=== PATIENT | female | born 1975 | race Caucasian/White ===

== ENCOUNTER 2016-11-05 11:25 | Emergency (ER) | payer SELFPAY ==
[2016-11-05 11:35] VITALS: BP 150/77
--- NOTE | 2016-11-05 12:12 | ER Document Report ---
ED Medical Screen (RME) - General Stated Complaint: EAR PAIN Information source: Patient Notes: 41-year-old with complete cerumen impaction that I see in triage of her right ear canal. She tried to get it out at home and was unsuccessful. I have greeted and performed a rapid initial assessment of this patient. A comprehensive ED assessment, evaluation of the patient, analysis of test results , and completion of the medical decision making process will be contacted by additional ED providers. TRAVEL OUTSIDE OF THE [place] IN LAST 30 DAYS: No - Related Data Allergies/Adverse Reactions: erythromycin lactobionate [From Erythrocin] Allergy (Verified 11/05/16 12:10) Shellfish * [Shellfish] Allergy (Verified 11/05/16 12:10) Past Medical History Pulmonary Medical History: Reports: Hx Asthma Past Surgical History: Reports: Hx Oral Surgery, Hx Tubal Ligation - Immunizations Immunizations up to date: Yes Hx Diphtheria, Pertussis, Tetanus Vaccination: Yes Physical Exam - Vital signs Vitals: Temp Pulse Resp BP Pulse Ox 98.1 F 78 14 150/77 H 98 11/05/16 11:34 11/05/16 11:34 11/05/16 11:34 11/05/16 11:34 11/05/16 11:34 Course - Vital Signs Vital signs: Temp Pulse Resp BP Pulse Ox 98.1 F 78 14 150/77 H 98 11/05/16 11:34 11/05/16 11:34 11/05/16 11:34 11/05/16 11:34 11/05/16 11:34
[2016-11-05] MEDS ORDERED: DOCUSATE SODIUM 100 MG/10 ML UDC AU ONE (13:42)
--- NOTE | 2016-11-05 13:50 | ER Document Report ---
ED ENT - General Chief Complaint: Ear Pain Stated Complaint: EAR PAIN Time seen by provider: 13:43 Mode of Arrival: Ambulatory Information source: Patient Notes: 41-year-old female presents to ED for decreased hearing in her right ear, states she tried some stuff at home but could not get the wax out. States she usually uses a Q-tip to clean her ears but does not have any Q-tips at this time TRAVEL OUTSIDE OF THE [place] IN LAST 30 DAYS: No - HPI Patient complains to provider of: Ear problem Onset: Yesterday Onset/Duration: Gradual Quality of pain: Achy Severity: Mild Pain Level: 1 Location of pain: Ears Associated symptoms: Other - cerumen impaction Similar symptoms previously: Yes Recently seen / treated by doctor: No - Related Data Allergies/Adverse Reactions: erythromycin lactobionate [From Erythrocin] Allergy (Verified 11/05/16 12:10) Shellfish * [Shellfish] Allergy (Verified 11/05/16 12:10) Past Medical History - General Information source: Patient - Social History Smoking Status: Never Smoker Cigarette use (# per day): No Chew tobacco use (# tins/day): No Smoking Education Provided: No Frequency of alcohol use: None Drug Abuse: None Lives with: Family Family History: Reviewed & Not Pertinent Patient has suicidal ideation: No Patient has homicidal ideation: No - Past Medical History Cardiac Medical History: Reports: None Pulmonary Medical History: Reports: Hx Asthma EENT Medical History: Reports: None Neurological Medical History: Reports: None Endocrine Medical History: Reports: None Renal/ Medical History: Reports: None Malignancy Medical History: Reports: None GI Medical History: Reports: None Musculoskeltal Medical History: Reports None Skin Medical History: Reports None Psychiatric Medical History: Reports: None Traumatic Medical History: Reports: None Infectious Medical History: Reports: None Past Surgical History: Reports: Hx Oral Surgery, Hx Tubal Ligation - Immunizations Immunizations up to date: Yes Hx Diphtheria, Pertussis, Tetanus Vaccination: Yes Review of Systems - Review of Systems Constitutional: No symptoms reported EENT: Ear pain Cardiovascular: No symptoms reported Respiratory: No symptoms reported Gastrointestinal: No symptoms reported Genitourinary: No symptoms reported Female Genitourinary: No symptoms reported Musculoskeletal: No symptoms reported Skin: No symptoms reported Hematologic/Lymphatic: No symptoms reported Neurological/Psychological: No symptoms reported Physical Exam - Vital signs Vitals: Temp Pulse Resp BP Pulse Ox 98.1 F 78 14 150/77 H 98 11/05/16 11:34 11/05/16 11:34 11/05/16 11:34 11/05/16 11:34 11/05/16 11:34 Interpretation: Normal - General General appearance: Appears well, Alert - HEENT Head: Normocephalic, Atraumatic Eyes: Normal Pupils: PERRL Ears: Normal External canal: Cerumen impaction - Right ear, a lot of wax in the left Sinus: Normal Nasal: Normal Mouth/Lips: Normal Pharynx: Normal Neck: Normal - Respiratory Respiratory status: No respiratory distress Chest status: Nontender Breath sounds: Normal Chest palpation: Normal - Cardiovascular Rhythm: Regular Heart sounds: Normal auscultation Murmur: No - Abdominal Inspection: Normal Distension: No distension Bowel sounds: Normal Tenderness: Nontender Organomegaly: No organomegaly - Back Back: Normal, Nontender - Extremities General upper extremity: Normal inspection, Nontender, Normal color, Normal ROM , Normal temperature General lower extremity: Normal inspection, Nontender, Normal color, Normal ROM , Normal temperature, Normal weight bearing. No: Simi's sign - Neurological Neuro grossly intact: Yes Cognition: Normal Orientation: AAOx4 [place] Coma Scale Eye Opening: Spontaneous [place] Coma Scale Verbal: Oriented [place] Coma Scale Motor: Obeys Commands [place] Coma Scale Total: 15 Speech: Normal Motor strength normal: LUE, RUE, LLE, RLE Sensory: Normal - Psychological Associated symptoms: Normal affect, Normal mood - Skin Skin Temperature: Warm Skin Moisture: Dry Skin Color: Normal Course - Re-evaluation Re-evalutation: 11/05/16 20:27 Patient states she could not wait long enough to get her ears cleaned patient given instructions on how to clean her ear with liquid Colace warm water and peroxide. Patient states she had to go to a teacher meat and could not wait to get it done right now but would return if she was not able to clean them the way she was instructed. - Vital Signs Vital signs: Temp Pulse Resp BP Pulse Ox 98.1 F 78 14 150/77 H 98 11/05/16 11:34 11/05/16 11:34 11/05/16 11:34 11/05/16 11:34 11/05/16 11:34 Discharge - Discharge Clinical Impression: Cerumen impaction Qualifiers: Laterality: bilateral Qualified Code(s): H61.23 - Impacted cerumen, bilateral Condition: Stable Disposition: HOME, SELF-CARE Instructions: Family Physicians / Practices Additional Instructions: Cerumen Impaction The physician found a severe buildup of earwax in your ear canal, called a cerumen impaction. A large plug of wax can cause earache, decreased hearing, or itching. It can even lead to infection of the outer ear. An impaction of earwax can be removed by the physician using special instruments, or can be irrigated out using a stream of water (often a little of both is required). Some less severe impactions are removed using ear drops that dissolve wax. In the future, don't get soap in your ear canal. Soap doesn't remove wax - - it simply hardens it in place. Don't use cotton swabs. These just push the wax into large clumps, where it doesn't flow out normally. Dust and smoke also contribute to wax buildup. Earwax softening drops are available without prescription, and can be used periodically. Contact the doctor if you develop decreased hearing, earache, drainage from the ear, or severe headache. Please put liquid Colace in the ear canal until it is full period that it stay for 15 minutes then irrigated with half peroxide half water with the bulb syringe. Then flushed with warm water. Acetaminophen Acetaminophen may be taken for pain relief or fever control. It's much safer than aspirin, offering a wider range of "safe" dosages. It is safe during . Some brand names are Tylenol, Panadol, Datril, Anacin 3, Tempra, and Liquiprin. Acetaminophen can be repeated every four hours. The following are maximum recommended dosages: WEIGHT Dose Drops Elixir Chewable( 80mg) (LBS.) drprs=droppers tsp=teaspoon 6 40 mg .4 ml (1/2) 6-11 80 mg .8 ml (full) 1/2 tsp 1 tab 12-16 120 mg 1 1/2 drprs 3/4 tsp 1 1/2 tabs 17-23 160 mg 2 drprs 1 tsp 2 tabs 24-30 240 mg 3 drprs 1 1/2 tsp 3 tabs 30-35 320 mg 2 tsp 4 tabs 36-41 360 mg 2 1/4 tsp 4 1 /2 tabs 42-47 400 mg 2 1/2 tsp 5 tabs 48-53 480 mg 3 tsp 6 tabs 54-59 520 mg 3 1/4 tsp 6 1 /2 tabs 60-64 560 mg 3 1/2 tsp 7 tabs 65-70 600 mg 3 3/4 tsp 7 1 /2 tabs 71-76 640 mg 4 tsp 8 tabs 77-82 720 mg 4 1/2 tsp 9 tabs 83-88 800 mg 5 tsp 10 tabs >89 pounds or adults 650 mg to 900 mg Acetaminophen can be repeated every four hours. Maximum daily dose not to exceed 4000 mg. These maximum recommended dosages are slightly higher than the dosages written on the product container, but these dosages are very safe and well below the toxic dosage for acetaminophen. FOLLOW-UP CARE: If you have been referred to a physician for follow-up care, call the physician s office for an appointment as you were instructed or within the next two days. If you experience worsening or a significant change in your symptoms, notify the physician immediately or return to the Emergency Department at any time for re-evaluation. Forms: Elevated Blood Pressure, Smoking Cessation Education, Return to Work
== END 2016-11-05 13:51 | disposition home or self-care (01) ==
LOC: ER 11:25
DX: H61.23 Impacted cerumen, bilateral (principal); J45.909 Unspecified asthma, uncomplicated; Z88.1 Allergy status to other antibiotic agents; Z91.013 Allergy to seafood
CPT/HCPCS: 99282

== ENCOUNTER 2017-07-06 19:17 | Emergency (ER) | payer SELFPAY ==
--- NOTE | 2017-07-06 20:49 | ER Document Report ---
HPI - HPI Pain Level: 2 Notes: Patient is a 41-year-old female who presents the ED complaining of a dry nonproductive cough 3 weeks. Patient states that it started out as a URI which has since turned into a cough that has not ceased. She still eating and drinking without any difficulties. Patient states that she does have a history of asthma, but has not been having wheezing or trouble breathing. Patient has been using [id number] meds with minimal relief. Patient states that she does have an allergy to erythromycin, but states that she just had a GI upset and no anaphylaxis or rash. Denies any headache, fever, neck pain, URI, sore throat, chest pain, palpitations, syncope, shortness of breath, wheeze, dyspnea , abdominal pain, nausea/vomiting/diarrhea, urinary retention, dysuria, hematuria, or rash. NO h/o DVT, PE, CAD, GA. No calf pains, distance travel, smoking, or hormone use. - ROS Notes: REVIEW OF SYSTEMS: CONSTITUTIONAL : Denies fever, chills, or sweats. Denies recent illness. EENT: Denies eye, ear, throat, or mouth pain or symptoms. Denies nasal or sinus congestion or discharge. Denies throat, tongue, or mouth swelling or difficulty swallowing. CARDIOVASCULAR: Denies chest pain. Denies palpitations or racing or irregular heart beat. Denies ankle edema. RESPIRATORY: see hpi. Denies shortness of breath, difficulty breathing, or wheezing. GASTROINTESTINAL: Denies abdominal pain or distention. Denies nausea, vomiting , or diarrhea. Denies blood in vomitus, stools, or per rectum. Denies black, tarry stools. Denies constipation. GENITOURINARY: Denies difficulty urinating, painful urination, burning, frequency, blood in urine, or discharge. MUSCULOSKELETAL: Denies back or neck pain or stiffness. Denies joint pain or swelling. SKIN: Denies rash, lesions or sores. NEUROLOGICAL: Denies confusion or altered mental status. Denies passing out or loss of consciousness. Denies dizziness or lightheadedness. Denies headache. Denies weakness or paralysis or loss of use of either side. Denies problems with gait or speech. Denies sensory loss, numbness, or tingling. ALL OTHER SYSTEMS REVIEWED AND NEGATIVE. Dictation was performed using [employer] voice recognition software - REPRODUCTIVE Reproductive: DENIES: : - DERM Skin Color: Normal, [place] Past Medical History - Social History Smoking Status: Never Smoker Family History: Reviewed & Not Pertinent Patient has suicidal ideation: No Patient has homicidal ideation: No Pulmonary Medical History: Reports: Hx Asthma Renal/ Medical History: Denies: Hx Peritoneal Dialysis Past Surgical History: Reports: Hx Oral Surgery, Hx Tubal Ligation - Immunizations Immunizations up to date: Yes Hx Diphtheria, Pertussis, Tetanus Vaccination: Yes Vertical Provider Document - CONSTITUTIONAL Agree With Documented VS: Yes Notes: PHYSICAL EXAMINATION: GENERAL: Well-appearing, well-nourished and in no acute distress. A&Ox4 HEAD: Atraumatic, normocephalic. EYES: Pupils equal round and reactive to light, extraocular movements intact, sclera anicteric, conjunctiva are normal. ENT: EAC clear b/l. TM's intact b/l without erythema, fluid, or perforation. Nares patent and without discharge. oropharynx clear without exudates. No tonsilar hypertrophy or erythema. Moist mucous membranes. No sinus tenderness. NECK: Normal range of motion, supple without lymphadenopathy LUNGS: Breath sounds clear to auscultation bilaterally and equal. No wheezes rales or rhonchi. HEART: Regular rate and rhythm without murmurs, rubs, gallops. ABDOMEN: Soft, nontender, nondistended abdomen. No guarding, no rebound. No masses appreciated. Normal bowel sounds present. No CVA tenderness bilaterally. Musculoskeletal: FROM to passive/active. Strength 5+/5. Simi neg b/l. Extremities: No cyanosis, clubbing, or edema b/l. Peripheral pulses 2+. Capillary refill less than 3 seconds. NEUROLOGICAL: Cranial nerves grossly intact. Normal speech, normal gait. Normal sensory, motor exams PSYCH: Normal mood, normal affect. SKIN: Warm, Dry, normal turgor, no rashes or lesions noted. - INFECTION CONTROL TRAVEL OUTSIDE OF THE [place] IN LAST 30 DAYS: No - RESPIRATORY O2 Sat by Pulse Oximetry: 100 Course - Re-evaluation Re-evalutation: 07/06/17 20:46 Patient is an afebrile, well-hydrated, 41-year-old female who presents the ED with acute bronchitis. Vitals are stable. PE is otherwise unremarkable. Going to cover her with Zithromax, Tessalon, and an albuterol inhaler based on H &P today. No other imaging warranted at this time. Low suspicion/risk for any ACS, PE, pneumothorax, pericarditis, dissection, sepsis, or respiratory compromise. Patient is aware that her condition can change from initial presentation and she needs to monitor symptoms closely and seek medical attention with any acute changes. Conservative measures otherwise for symptoms. Recheck with your PCM in 2-3 days. Return to the ED with any worsening/concerning symptoms otherwise as reviewed discharge. Patient is in agreement. Patient does not have a true medicine allergy to macrolides she just had a GI upset without any rash or anaphylaxis to erythromycin. - Vital Signs Vital signs: Temp Pulse Resp BP Pulse Ox 98.5 F 79 18 147/71 H 100 07/06/17 19:28 07/06/17 19:28 07/06/17 19:28 07/06/17 19:28 07/06/17 19:28 Discharge - Discharge Clinical Impression: Acute bronchitis Qualifiers: Bronchitis organism: unspecified organism Qualified Code(s): J20.9 - Acute bronchitis, unspecified Condition: Stable Disposition: HOME, SELF-CARE Instructions: Bronchitis ([facility]), Inhaled Bronchodilators ([facility]), Tessalon Perles ([facility]), Azithromycin ([facility]), Family Physicians / Practices Additional Instructions: Maintain adequate fluid intake Take meds as directed tylenol/ibuprofen as needed over the counter cold medication as needed for symptoms Humidified air may help F/u: with your PCM in 2-3 days for a recheck Return to the ED with any fever, worsening pain, chest pain, palpitations, syncope, worsening PATIÑO, neck pain/stiffness, shortness of breath, wheezing, drooling, trouble swallowing/breathing, abdominal pain, n/v/d, rash, or worsening/concerning symptoms otherwise. Prescriptions: Benzonatate [Tessalon Perle 100 mg Capsule] 100 mg PO Q8HP PRN #15 cap PRN Reason: Albuterol Sulfate [Proair HFA Inhalation Aerosol 8.5 gm MDI] 2 puff IH Q4H PRN # 1 mdi PRN Reason: Azithromycin [Zithromax 250 mg Tablet] 250 mg PO ASDIR PRN #6 tablet PRN Reason: Forms: Elevated Blood Pressure Referrals: [facility] [Provider Group] - Follow up as needed
[2017-07-06 20:58] VITALS: BP 138/70
== END 2017-07-06 20:58 | disposition home or self-care (01) ==
LOC: ER 19:17
DX: J20.9 Acute bronchitis, unspecified (principal); J45.909 Unspecified asthma, uncomplicated; R05 Cough
CPT/HCPCS: 99283

== ENCOUNTER 2017-12-17 10:30 | Emergency (ER) | payer OTHER ==
[2017-12-17] MEDS ORDERED: ONDANSETRON 4 MG TAB.RAPDIS PO ONE (11:09)
[2017-12-17] MEDS ORDERED: ACETAMINOPHEN 325 MG TABLET PO ONE (11:09)
--- NOTE | 2017-12-17 11:10 | ER Document Report ---
ED Medical Screen (RME) - General Chief Complaint: Gas Exposure Stated Complaint: NAUSEA, CHEST TIGHTNESS Time Seen by Provider: 12/17/17 11:05 Notes: RME DISCLOSURE I have seen this patient as part of a Rapid Medical Evaluation and, if applicable, placed any initially appropriate orders. The patient will be seen and fully evaluated, including a full history and physical exam, by a provider ( in Main ED or Fast Track) when a room becomes available. 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 The fire department told her the "levels were high" and was told to come here. She does not have any shortness of breath. She is 1 of numerous employees with similar symptoms. TRAVEL OUTSIDE OF THE [place] IN LAST 30 DAYS: No - Related Data Allergies/Adverse Reactions: erythromycin lactobionate [From Erythrocin] Allergy (Verified 12/17/17 10:33) Shellfish * [Shellfish] Allergy (Verified 12/17/17 10:33) Past Medical History Pulmonary Medical History: Reports: Hx Asthma, Hx Bronchitis - frequent Renal/ Medical History: Denies: Hx Peritoneal Dialysis Past Surgical History: Reports: Hx Oral Surgery, Hx Tubal Ligation - Immunizations Immunizations up to date: Yes Hx Diphtheria, Pertussis, Tetanus Vaccination: Yes Physical Exam - Vital signs Vitals: Temp Pulse Resp BP Pulse Ox 98.2 F 56 L 20 132/61 H 100 12/17/17 10:36 12/17/17 10:36 12/17/17 10:36 12/17/17 10:36 12/17/17 10:36 Course - Vital Signs Vital signs: Temp Pulse Resp BP Pulse Ox 98.2 F 56 L 20 132/61 H 100 12/17/17 10:36 12/17/17 10:36 12/17/17 10:36 12/17/17 10:36 12/17/17 10:36
--- NOTE | 2017-12-17 11:42 | RADIOLOGY REPORT (SQ) ---
EXAM DESCRIPTION: CHEST PA/LAT COMPLETED DATE/TIME: 12/17/2017 11:19 am REASON FOR STUDY: CP cough COMPARISON: 09/02/2016 NUMBER OF VIEWS: Two view. TECHNIQUE: Frontal and lateral radiographic views of the chest acquired. LIMITATIONS: None. FINDINGS: LUNGS AND PLEURA: No opacities, masses or pneumothorax. No pleural effusion. MEDIASTINUM AND HILAR STRUCTURES: No masses or contour abnormalities. HEART AND VASCULATURE: Heart normal size. No evidence for failure. BONY STRUCTURES: No acute findings. HARDWARE: None. OTHER: No other significant finding. IMPRESSION: NO SIGNIFICANT RADIOGRAPHIC FINDING IN THE CHEST. TECHNICAL DOCUMENTATION: JOB ID: [id number] [employer]- All Rights Reserved Reading location - IP/workstation name: [email or web address]
[2017-12-17 12:17] LABS: ABSOLUTE BASOPHILS # (AUTO) 0.1 10^3/uL (0.0-0.2); ABSOLUTE EOSINOPHILS # (AUTO) 0.2 10^3/uL (0.0-0.6); ABSOLUTE LYMPHOCYTES (AUTO) 2.9 10^3/uL (0.5-4.7); ABSOLUTE MONOCYTES (AUTO) 0.8 10^3/uL (0.1-1.4); ABSOLUTE NEUT (AUTO) 6.2 10^3/uL (1.7-8.2); BASOPHILS % (AUTO) 1.1 % (0-2); EOSINOPHILS % (AUTO) 1.7 % (0-6); HEMATOCRIT 32.4 % (36.0-47.0); HEMOGLOBIN 10.3 g/dL (12.0-15.5); LYMPHOCYTES % (AUTO) 28.1 % (13-45); MEAN CORPUSCULAR HEMOGLOBIN 21.2 pg (27.0-33.4); MEAN CORPUSCULAR HGB CONC 31.7 g/dL (32.0-36.0); MEAN CORPUSCULAR VOLUME 67 fl (80-97); MONOCYTES % (AUTO) 7.6 % (3-13); RED BLOOD COUNT 4.83 10^6/uL (3.72-5.28); RED CELL DISTRIBUTION WIDTH 16.9 % (11.5-14.0); SEGMENTED NEUTROPHILS % (AUTO) 61.5 % (42-78); TOTAL CELLS COUNTED % (AUTO) 100 %; WHITE BLOOD COUNT 10.1 10^3/uL (4.0-10.5)
[2017-12-17 12:31] LABS: ALANINE AMINOTRANSFERASE 27 U/L (9-52); ALBUMIN 4.2 g/dL (3.5-5.0); ALKALINE PHOSPHATASE 58 U/L (38-126); ANION GAP 11 (5-19); ASPARTATE AMINO TRANSFERASE 17 U/L (14-36); BLOOD UREA NITROGEN 13 mg/dL (7-20); CALCIUM 9.5 mg/dL (8.4-10.2); CARBON DIOXIDE 24 mmol/L (22-30); CHLORIDE 106 mmol/L (98-107); GLUCOSE 81 mg/dL (75-110); POTASSIUM 4.3 mmol/L (3.6-5.0); SODIUM 141.1 mmol/L (137-145)
[2017-12-17 12:34] LABS: BILIRUBIN,TOTAL < 0.1 mg/dL (0.2-1.3)
[2017-12-17 12:37] LABS: PLATELET COUNT 405 10^3/uL (150-450)
--- NOTE | 2017-12-17 12:47 | ER Document Report ---
ED Burn/Smoke/Toxic Fumes - General Chief Complaint: Gas Exposure Stated Complaint: NAUSEA, CHEST TIGHTNESS Time Seen by Provider: 12/17/17 11:05 Mode of Arrival: Ambulatory Information source: Patient TRAVEL OUTSIDE OF THE [place] IN LAST 30 DAYS: No - HPI Patient complains to provider of: Exposure to toxic fumes Notes: Patient is here with complaints of CO2 exposure. She works at [employer] She states that she was in the building for approximately an hour. 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 As they were in the building longer prepping food they started to have eye burning lightheadedness and chest tightness as well as nausea and realized something was wrong. They left the building and called the fire department who found that there was a high level of CO2 in the building. Patient has a history of asthma. She is not a smoker. She states that right now she is feeling significantly better at this time. She denies any chest pain or shortness of breath currently. No vomiting. No fever. She has no other complaints. - Related Data Allergies/Adverse Reactions: erythromycin lactobionate [From Erythrocin] Allergy (Verified 12/17/17 10:33) Shellfish * [Shellfish] Allergy (Verified 12/17/17 10:33) Past Medical History - Social History Smoking Status: Never Smoker Chew tobacco use (# tins/day): No Frequency of alcohol use: None Drug Abuse: None Family History: Reviewed & Not Pertinent Patient has suicidal ideation: No Patient has homicidal ideation: No Pulmonary Medical History: Reports: Hx Asthma, Hx Bronchitis - frequent Renal/ Medical History: Denies: Hx Peritoneal Dialysis Past Surgical History: Reports: Hx Oral Surgery, Hx Tubal Ligation - Immunizations Immunizations up to date: Yes Hx Diphtheria, Pertussis, Tetanus Vaccination: Yes Review of Systems - Review of Systems -: Yes All other systems reviewed and negative Physical Exam - Vital signs Vitals: Temp Pulse Resp BP Pulse Ox 98.2 F 56 L 20 132/61 H 100 12/17/17 10:36 12/17/17 10:36 12/17/17 10:36 12/17/17 10:36 12/17/17 10:36 - Notes Notes: GENERAL: alert, cooperative, nontoxic, no distress. HEAD: normocephalic, atraumatic EYES: conjunctiva pink without discharge, no external redness or swelling. EARS: no external swelling, no external redness NOSE: atraumatic, no external swelling MOUTH/THROAT: mucous membranes moist and pink, posterior pharynx without erythema, swelling, exudate. No trismus or drooling. NECK: soft, supple, full range of motion, no meningismus. CHEST: no distress, lungs clear and equal throughout. No wheezing, rales, rhonchi. CARDIAC: regular rate and rhythm, no murmur, normal capillary refill, normal pulses. No peripheral edema noted. ABDOMEN: Soft, nontender. BACK: full range of motion, no CVA tenderness. EXTREMITIES: full range of motion of all extremities. No redness, no swelling. NEURO: alert and oriented x 3, no focal deficits, full range of motion of all extremities. PYSCH: appropriate mood, affect. Patient is cooperative. SKIN: pink, warm, dry, no rash. Course - Re-evaluation Re-evalutation: 12/17/17 14:11 Patient is here nontoxic appearing with stable vitals after being exposed to gas leak or CO2 at work. She was having some chest tightness and lightheadedness with eye burning when she arrived, but this is all resolved. EKG is unremarkable. Labs are all unremarkable. Carboxy hemoglobin is 1.1 and normal. Chest x-ray shows no acute abnormalities. She was placed on a nonrebreather and was observed for 90 minutes and is feeling completely resolved at this time. At this point the patient can be discharged home. She does have a history of asthma, so she was instructed if she starts having any asthma symptoms to be evaluated. At this time she has no wheezing. She does have an albuterol inhaler at home. The patient is noted to have elevated blood pressure during today's emergency department visit. The patient was informed of this finding. The patient was instructed that this may be related to pre-hypertension and requires further evaluation with a primary care provider. The patient has no hypertensive symptoms at this time. The patient's emergency department workup and current diagnosis were explained to the patient and or family. Follow-up instructions were provided. Medications if prescribed were discussed. Instructions for when to return to the emergency department including specific worrisome symptoms were discussed with the patient and/or family. - Vital Signs Vital signs: Temp Pulse Resp BP Pulse Ox 98.2 F 56 L 20 132/61 H 100 12/17/17 10:36 12/17/17 10:36 12/17/17 10:36 12/17/17 10:36 12/17/17 10:36 - Laboratory Result Diagrams: 12/17/17 11:55 12/17/17 11:55 Laboratory results interpreted by me: 12/17/17 12/17/17 11:55 11:55 Hgb 10.3 L Hct 32.4 L MCV 67 L MCH 21.2 L MCHC 31.7 L RDW 16.9 H Total Bilirubin < 0.1 L - Diagnostic Test Radiology reviewed: Image reviewed, Reports reviewed - Negative chest x-ray - EKG Interpretation by Me EKG shows normal: Sinus rhythm, [place], Intervals, QRS Complexes, ST-T Waves Rate: Normal Discharge - Discharge Clinical Impression: Exposure to gaseous substance Condition: Stable Disposition: HOME, SELF-CARE Instructions: Carbon Monoxide ([facility]) Additional Instructions: Follow-up with your doctor as needed. Follow-up sooner for worsening pain, chest pain, difficulty breathing, high fever, or for any further concerns. Your blood pressure was elevated during today's visit. Have this rechecked with your doctor. Forms: Elevated Blood Pressure Referrals: JUAN DIEGO ESTRELLA MD [Primary Care Provider] - Follow up as needed
--- NOTE | 2017-12-17 13:24 | EKG REPORT ---
SEVERITY:- NORMAL ECG - SINUS RHYTHM : Confirmed by: Favio Shelby MD 17-Dec-2017 13:22:38
[2017-12-17 14:26] VITALS: BP 131/56
== END 2017-12-17 14:32 | disposition home or self-care (01) ==
LOC: ER 10:30
DX: T59.7X1A Toxic effect of carbon dioxide, accidental (unintentional), initial encounter (principal); R42 Dizziness and giddiness; R07.9 Chest pain, unspecified; R11.0 Nausea; J45.909 Unspecified asthma, uncomplicated; Y92.511 Restaurant or cafe as the place of occurrence of the external cause; R03.0 Elevated blood-pressure reading, without diagnosis of hypertension
CPT/HCPCS: 93005; 99284; 36415; 82375; 85025; 80053; 71046; 93010; S0119

== ENCOUNTER → 2017-12-18 | Outpatient (CLI) | payer SELFPAY ==
--- NOTE | 2017-12-18 17:26 | WOMENS IMAGING REPORT ---
EXAM DESCRIPTION: BILAT SCREENING MAMMO W/CAD COMPLETED DATE/TIME: 12/18/2017 2:43 pm REASON FOR STUDY: ROUTINE SCREENING; Z12.31 Z12.31 ENCNTR SCREEN MAMMOGRAM FOR MALIGNANT NEOPLASM O F ROSA COMPARISON: None. TECHNIQUE: Standard craniocaudal and mediolateral oblique views of each breast recorded using BlockScorea l acquisition. LIMITATIONS: None. FINDINGS: Findings present which are benign by mammographic criteria. No suspicious masses, calcifi cations or architectural distortion. Pertinent benign findings: Left asymmetry. Read with the assistance of CAD. .[facility] - R2 Cenova Version 1.3 .[facility] - R2 Cenova Version 1.3 .[facility] - R2 Cenova Version 2.4 .[facility] - R2 Cenova Version 2.4 .[facility] - R2 Stripper And Taper Version 9.2 Benign mammographic findings may include one or more of the following: Smooth masses, popcorn/rim/co arse calcifications, asymmetries, post-procedure changes, and lesions with long-standing stability. IMPRESSION: BENIGN MAMMOGRAPHIC FINDINGS. BIRADS 2 BREAST DENSITY: b. There are scattered areas of fibroglandular density. BIRAD: 2 BENIGN FINDING(S) RECOMMENDATION: ROUTINE SCREENING COMMENT: The patient has been notified of the results by letter per SA requirements. Additional no tification policies are in place for contacting patient with suspicious or incomplete findings. Quality ID #[id number]: The [employer] recommends an annual screening mammogram for women aged 40 years or over. This facility utilizes a reminder system to ensure that all patients receive reminder letters, and/or direct phone calls for appointments. This includes reminders for routine scr eening mammograms, diagnostic mammograms, or other Breast Imaging Interventions when appropriate. Th is patient will be placed in the appropriate reminder system. The [employer] (ACR) has developed recommendations for screening MRI of the breast s in certain patient populations, to be used in conjunction with mammography. Breast MRI surveillanc e may be appropriate for women with more than 20% lifetime risk of developing breast cancer as deter mined by genetic testing, significant family history of the disease, or history of mantle radiation f or Hodgkins Disease. ACR Practice Guidelines 2008. TECHNICAL DOCUMENTATION: FINDING NUMBER: (1) ASSESSMENT: (1) JOB ID: [id number] [employer]- All Rights Reserved Reading location - IP/workstation name: [email or web address]
== END ==
LOC: WI 14:28
PROVIDERS: ATTEND Family Medicine
DX: Z12.31 Encounter for screening mammogram for malignant neoplasm of breast (principal)
CPT/HCPCS: 77067

== ENCOUNTER → 2018-02-12 | Outpatient (CLI) | payer BC ==
--- NOTE | 2018-02-12 17:13 | RADIOLOGY REPORT (SQ) ---
EXAM DESCRIPTION: U/S NON-OB PELVIS TV W/O DOP COMPLETED DATE/TIME: 02/12/2018 4:58 pm REASON FOR STUDY: N94.6 DYSMENORRHEA, UNSPECIFIED N94.6 DYSMENORRHEA, UNSPECIFIED COMPARISON: None. TECHNIQUE: Dynamic and static grayscale images acquired of the pelvis via transvaginal approach and recorded on PACS. Additional selected color Doppler and spectral images recorded. LIMITATIONS: None. FINDINGS: UTERUS: Contour normal. No mass. ENDOMETRIAL STRIPE: No focal or generalized thickening. No masses. CERVIX: Multiple nabothian cysts are present. The largest measured 1 cm. RIGHT OVARY AND DOPPLER: There is 13 x 12 x 14 mm cyst. LEFT OVARY AND DOPPLER: Poorly seen because of overlying bowel gas. Normal size. FREE FLUID: None noted. OTHER: No other significant finding. MEASUREMENTS: UTERUS: 10.7 x 6.4 cm. ENDOMETRIAL STRIPE: 1.3 cm. RIGHT OVARY: 3.3 x 2 x 2 cm. LEFT OVARY: 3.4 x 2.7 x 2.2 cm. IMPRESSION: The study is essentially normal. Nabothian cysts are present. A small right ovarian cy st is present. TECHNICAL DOCUMENTATION: JOB ID: [id number] [employer]- All Rights Reserved Rev Reading location - IP/workstation name: [email or web address]
== END ==
LOC: RAD 16:35
PROVIDERS: ATTEND Family Medicine
DX: N94.6 Dysmenorrhea, unspecified (principal)
CPT/HCPCS: 76830

== ENCOUNTER 2018-08-06 12:54 | Emergency (ER) | payer BC ==
[2018-08-06 13:00] VITALS: BP 138/73
[2018-08-06] MEDS ORDERED: NORMAL SALINE 1000 ML 1,000 ML IV ONE (13:14)
--- NOTE | 2018-08-06 13:23 | ER Document Report ---
ED Medical Screen (RME) - General Chief Complaint: Abdominal Pain Stated Complaint: ABDOMINAL PAIN Time Seen by Provider: 08/06/18 13:10 Notes: 43 years old female presents today with heavy menstrual bleeding starting yesterday but today the bleeding was heavier. Therefore present to the ED. Last menstrual cycle lasted 2 weeks ended around 30 31st of last month. Abdominal cramps but no pain. Denies any nausea vomiting fever chills or other constitutional symptoms. TRAVEL OUTSIDE OF THE [place] IN LAST 30 DAYS: No - Related Data Allergies/Adverse Reactions: erythromycin lactobionate [From Erythrocin] Allergy (Verified 08/06/18 12:55) Shellfish * [Shellfish] Allergy (Verified 08/06/18 12:55) Past Medical History - Social History Chew tobacco use (# tins/day): No Frequency of alcohol use: None Drug Abuse: None Pulmonary Medical History: Reports: Hx Asthma, Hx Bronchitis - frequent Renal/ Medical History: Denies: Hx Peritoneal Dialysis Past Surgical History: Reports: Hx Oral Surgery, Hx Tubal Ligation - Immunizations Immunizations up to date: Yes Hx Diphtheria, Pertussis, Tetanus Vaccination: Yes Physical Exam - Vital signs Vitals: Temp Pulse Resp BP Pulse Ox 98.4 F 81 16 138/73 H 99 08/06/18 12:59 08/06/18 12:59 08/06/18 12:59 08/06/18 12:59 08/06/18 12:59 Course - Vital Signs Vital signs: Temp Pulse Resp BP Pulse Ox 98.4 F 81 16 138/73 H 99 08/06/18 12:59 08/06/18 12:59 08/06/18 12:59 08/06/18 12:59 08/06/18 12:59 Doctor's Discharge - Discharge Referrals: JUAN DIEGO ESTRELLA MD [Primary Care Provider] - Follow up as needed
[2018-08-06 14:02] LABS: ABSOLUTE BASOPHILS # (AUTO) 0.1 10^3/uL (0.0-0.2); ABSOLUTE EOSINOPHILS # (AUTO) 0.2 10^3/uL (0.0-0.6); ABSOLUTE LYMPHOCYTES (AUTO) 2.3 10^3/uL (0.5-4.7); ABSOLUTE MONOCYTES (AUTO) 0.9 10^3/uL (0.1-1.4); ABSOLUTE NEUT (AUTO) 6.3 10^3/uL (1.7-8.2); BASOPHILS % (AUTO) 0.9 % (0-2); HEMATOCRIT 34.2 % (36.0-47.0); HEMOGLOBIN 11.2 g/dL (12.0-15.5); LYMPHOCYTES % (AUTO) 23.6 % (13-45); MEAN CORPUSCULAR HGB CONC 32.8 g/dL (32.0-36.0); MEAN CORPUSCULAR VOLUME 73 fl (80-97); MONOCYTES % (AUTO) 9.2 % (3-13); PLATELET COUNT 408 10^3/uL (150-450); RED BLOOD COUNT 4.67 10^6/uL (3.72-5.28); RED CELL DISTRIBUTION WIDTH 17.1 % (11.5-14.0); SEGMENTED NEUTROPHILS % (AUTO) 64.3 % (42-78); TOTAL CELLS COUNTED % (AUTO) 100 %; WHITE BLOOD COUNT 9.8 10^3/uL (4.0-10.5)
[2018-08-06 14:22] LABS: APPEARANCE,URINE TURBID; BILIRUBIN,URINE NEGATIVE (NEGATIVE); COLOR,URINE RED; GLUCOSE, URINE 50 mg/dL (NEGATIVE); KETONES,URINE NEGATIVE (NEGATIVE); LEUKOCYTE ESTERASE,URINE NEGATIVE (NEGATIVE); NITRITE,URINE NEGATIVE (NEGATIVE); PROTEIN,URINE >=500 mg/dL (NEGATIVE); URINE SPECIFIC GRAVITY 1.034; UROBILINOGEN,URINE NEGATIVE mg/dL (<2.0)
--- NOTE | 2018-08-06 15:00 | ER Document Report ---
ED General - General Chief Complaint: Abdominal Pain Stated Complaint: ABDOMINAL PAIN Time Seen by Provider: 08/06/18 13:10 Mode of Arrival: Ambulatory Information source: Patient Notes: 43-year-old female presents today with complaints of heavy menstrual bleeding. She states that her menstrual cycle started yesterday but today the bleeding was heavier. Patient states that her last menstrual cycle was 2 weeks ago. She states that she is having her typical menstrual cramping. She denies any abdominal pain. She denies any dysuria, increased urgency, increased frequency , abnormal vaginal discharge, nausea, vomiting. Patient states that she has been having heavy menstrual cycles for the last 6 months. She has followed up with her primary care physician in the past. Patient states that blood work was done and she was told that everything came back normal. Patient states that she has not been following up with an DEVELOPMENTAL MATHEMATICS PROFESSOR. TRAVEL OUTSIDE OF THE [place] IN LAST 30 DAYS: No - HPI Onset: Yesterday Onset/Duration: Persistent Quality of pain: No pain Severity: None Pain Level: Denies Associated symptoms: None Exacerbated by: Denies Relieved by: Denies Similar symptoms previously: Yes Recently seen / treated by doctor: No - Related Data Allergies/Adverse Reactions: erythromycin lactobionate [From Erythrocin] Allergy (Verified 08/06/18 12:55) Shellfish * [Shellfish] Allergy (Verified 08/06/18 12:55) Past Medical History - General Information source: Patient - Social History Smoking Status: Never Smoker Chew tobacco use (# tins/day): No Frequency of alcohol use: None Drug Abuse: None Family History: Reviewed & Not Pertinent Patient has suicidal ideation: No Patient has homicidal ideation: No Pulmonary Medical History: Reports: Hx Asthma, Hx Bronchitis - frequent Renal/ Medical History: Denies: Hx Peritoneal Dialysis Past Surgical History: Reports: Hx Oral Surgery, Hx Tubal Ligation - Immunizations Immunizations up to date: Yes Hx Diphtheria, Pertussis, Tetanus Vaccination: Yes Review of Systems - Review of Systems Constitutional: No symptoms reported EENT: No symptoms reported Cardiovascular: No symptoms reported Respiratory: No symptoms reported Gastrointestinal: No symptoms reported Genitourinary: No symptoms reported Female Genitourinary: Heavy/abnormal periods Musculoskeletal: No symptoms reported Skin: No symptoms reported Hematologic/Lymphatic: No symptoms reported Neurological/Psychological: No symptoms reported -: Yes All other systems reviewed and negative Physical Exam - Vital signs Vitals: Temp Pulse Resp BP Pulse Ox 98.4 F 81 16 138/73 H 99 08/06/18 12:59 08/06/18 12:59 08/06/18 12:59 08/06/18 12:59 08/06/18 12:59 - Notes Notes: PHYSICAL EXAMINATION: GENERAL: Well-appearing, well-nourished and in no acute distress. HEAD: Atraumatic, normocephalic. EYES: Pupils equal round and reactive to light, extraocular movements intact, conjunctiva are normal. ENT: Nares patent, oropharynx clear without exudates. Moist mucous membranes. NECK: Normal range of motion, supple without lymphadenopathy LUNGS: Breath sounds clear to auscultation bilaterally and equal. No wheezes rales or rhonchi. HEART: Regular rate and rhythm without murmurs ABDOMEN: Soft, nontender, nondistended abdomen. No guarding, no rebound. No masses appreciated. Female : Blood from cervical os. No clots appreciated. No ovarian tenderness. Musculoskeletal: Normal range of motion, no pitting or edema. No cyanosis. NEUROLOGICAL: Cranial nerves grossly intact. Normal speech, normal gait. Normal sensory, motor exams PSYCH: Normal mood, normal affect. SKIN: Warm, Dry, normal turgor, no rashes or lesions noted. Course - Re-evaluation Re-evalutation: 08/06/18 14:57 Vital signs stable. Patient is not concerned about sexually transmitted diseases. Denies abnormal vaginal discharge. Says that she's having her usual menstrual cramps. No abdominal pain. Pelvic exam done. Bleeding from the cervical loss appreciated. No clots seen. No ovarian tenderness to palpation. No abdominal tenderness to palpation. Labs obtained. Hemoglobin is stable. Urinalysis shows contamination versus UTI. Patient states that she has a primary care physician that she is been following up with for her heavy menstrual cycles. I instructed the patient to schedule an appointment with her primary care physician this week. I will give her a referral to an DEVELOPMENTAL MATHEMATICS PROFESSOR. I told the patient that if she begins feeling lightheaded, diaphoretic, feels like she is losing too much blood to come back to the emergency department for re-of the examination. I told her to otherwise follow-up with her primary care physician for a hemoglobin recheck this week. Patient feels comfortable with the plan of care. - Vital Signs Vital signs: Temp Pulse Resp BP Pulse Ox 98.4 F 81 16 138/73 H 99 08/06/18 12:59 08/06/18 12:59 08/06/18 12:59 08/06/18 12:59 08/06/18 12:59 - Laboratory Result Diagrams: 08/06/18 13:45 Laboratory results interpreted by me: 08/06/18 08/06/18 13:45 13:45 Hgb 11.2 L Hct 34.2 L MCV 73 L MCH 24.0 L RDW 17.1 H Urine Protein >=500 H Urine Glucose (UA) 50 H Urine Blood LARGE H Discharge - Discharge Clinical Impression: Menorrhagia Qualifiers: Menorrahagia type: with irregular cycle Qualified Code(s): N92.1 - Excessive and frequent menstruation with irregular cycle Condition: Good Disposition: HOME, SELF-CARE Instructions: Menorrhagia ([facility]) Additional Instructions: Follow up with your primary care physician and DEVELOPMENTAL MATHEMATICS PROFESSOR this week for a re- evaluation and possible hemoglobin recheck. If you have worsening bleeding, feel lightheaded, diaphoretic, or have abdominal pain, return to the emergency department for a re-evaluation. Forms: Return to Work Referrals: JUAN DIEGO ESTRELLA MD [Primary Care Provider] - Follow up as needed ANNE-MARIE LOVETT MD [ACTIVE STAFF] - Follow up as needed
== END 2018-08-06 15:14 | disposition home or self-care (01) ==
LOC: ER 12:54
DX: N92.1 Excessive and frequent menstruation with irregular cycle (principal); J45.909 Unspecified asthma, uncomplicated; Z98.51 Tubal ligation status; Z88.1 Allergy status to other antibiotic agents; Z91.013 Allergy to seafood
CPT/HCPCS: 99284; 96360; 36415; 85025; 81025; 81001; J7030

== ENCOUNTER 2019-02-20 20:24 | Emergency (ER) | payer BC ==
--- NOTE | 2019-02-20 22:58 | RADIOLOGY REPORT (SQ) ---
EXAM DESCRIPTION: XR CHEST 2 VIEWS COMPLETED DATE/TME: 02/20/2019 00:00 CLINICAL HISTORY: 43 years, Female, cough COMPARISON: 12/17/2017 chest NUMBER OF VIEWS: 2 TECHNIQUE: 2 view chest LIMITATIONS: None. FINDINGS: Heart size normal. Lungs clear. No pneumothorax IMPRESSION: Negative chest copyright 2010 [employer]- All Rights Reserved
[2019-02-21] MEDS ORDERED: PREDNISONE 20 MG TABLET PO ONE (01:28)
[2019-02-21] MEDS ORDERED: ALBUTEROL SULFATE HFA (90 MCG/PUFF) 8 GM MDI (1 MDI/ER DISP) IH PRN (01:28)
[2019-02-21] MEDS ORDERED: BENZONATATE 100 MG CAPSULE PO ONE (01:29)
--- NOTE | 2019-02-21 01:36 | ER Document Report ---
ED General - General Chief Complaint: Nonproductive Cough Stated Complaint: COUGH Time Seen by Provider: 02/21/19 01:21 Primary Care Provider: JUAN DIEGO ESTRELLA MD [Primary Care Provider] - Follow up as needed Mode of Arrival: Ambulatory Information source: Patient TRAVEL OUTSIDE OF THE [place] IN LAST 30 DAYS: No - HPI Patient complains to provider of: Constant dry cough Onset: Other - 3 weeks Onset/Duration: Constant Quality of pain: No pain Severity: Moderate Pain Level: 3 Associated symptoms: Nonproductive cough. denies: Chills, Productive cough, Diarrhea, Fever, Nausea, Vomiting Exacerbated by: Denies Relieved by: Denies Similar symptoms previously: No Recently seen / treated by doctor: No Notes: 43-year-old female coming in today with persistent dry cough for the past 3 weeks. Patient has a history of asthma and has not had an inhaler for some time. No fevers or chills. No other symptoms - Related Data Allergies/Adverse Reactions: erythromycin lactobionate [From Erythrocin] Allergy (Verified 02/20/19 20:29) Shellfish * [Shellfish] Allergy (Verified 02/20/19 20:29) Past Medical History - General Information source: Patient - Social History Smoking Status: Never Smoker Frequency of alcohol use: None Drug Abuse: None Family History: Reviewed & Not Pertinent Patient has suicidal ideation: No Patient has homicidal ideation: No Pulmonary Medical History: Reports: Hx Asthma, Hx Bronchitis - frequent Renal/ Medical History: Denies: Hx Peritoneal Dialysis Past Surgical History: Reports: Hx Oral Surgery, Hx Tubal Ligation - Immunizations Immunizations up to date: Yes Hx Diphtheria, Pertussis, Tetanus Vaccination: Yes Review of Systems - Review of Systems Notes: Constitutional: No fevers. No chills. EENT: No eye redness. No eye pain. No ear pain. No sore throat. Cardiovascular: No chest pain. No palpitations. Respiratory: Positive for nonproductive cough negative for shortness of breath Gastrointestinal: No abdominal pain. No nausea, vomiting, or diarrhea. Genitourinary: Atraumatic. No lesions. No pain. No discharge. Musculoskeletal: Atraumatic. No swelling. No deformities. Skin: No rash or lesions. Lymphatic: No swollen lymph nodes. Neurologic: No headache. No syncope. Psychiatric: No suicidal or homicidal ideation. Physical Exam - Vital signs Vitals: Temp Pulse Resp BP Pulse Ox 98.0 F 77 17 139/76 H 97 02/20/19 20:41 02/20/19 20:41 02/20/19 20:41 02/20/19 20:41 02/20/19 20:41 - Notes Notes: General: Well-developed, well-nourished. In no acute distress. Non-toxic appearing. Cardiac: Well-perfused. Regular rate and rhythm. No murmurs, rubs, or gallops. Pulmonary: Slightly diminished. No retractions. No rhonchi. No crackles Abdominal: Non-distended. Non-rigid. Bowels sounds are present in all four quadrants. No guarding or rebound. HEENT: Head is atraumatic. Conjunctivae not reddened. No tearing. PERRL. EOMI. Orbits atraumatic. No periorbital swelling or erythema. Oropharynx is without erythema, swelling, or exudates. Neck: Supple. No adenopathy. No meningismus. Dermatologic: Warm with good turgor. No rash. Atraumatic. Chest: Atraumatic. No chest wall tenderness to palpation. Musculoskeletal: Moves all extremities well. No range of motion deficits. no muscular or joint tenderness. No paraspinal muscle tenderness. no midline spinal tenderness or step-off. Genitourinary: Examination deferred Neurologic: No gross neurologic deficits. Psychiatric: Normal mood. Course - Vital Signs Vital signs: Temp Pulse Resp BP Pulse Ox 98.0 F 77 17 139/76 H 97 02/20/19 20:41 02/20/19 20:41 02/20/19 20:41 02/20/19 20:41 02/20/19 20:41 Discharge - Discharge Clinical Impression: Nonproductive cough, History of asthma Condition: Good Disposition: HOME, SELF-CARE Instructions: Cough Suppressant & Expectorant Medications, Bronchitis With Bronchospasm (Wheezing) ([facility]) Prescriptions: Benzonatate [Tessalon Perles 100 mg Capsule] 100 mg PO Q8HP PRN #30 capsule PRN Reason: Albuterol Sulfate [Proair HFA Inhalation Aerosol 8.5 gm MDI] 2 puff IH Q4H PRN #1 mdi PRN Reason: Prednisone [Deltasone 20 mg Tablet] 3 tab PO DAILY 5 Days #15 tablet Referrals: JUAN DIEGO ESTRELLA MD [Primary Care Provider] - Follow up as needed
[2019-02-21 02:10] VITALS: BP 125/54
== END 2019-02-21 02:10 | disposition home or self-care (01) ==
LOC: ER 20:24
DX: R05 Cough (principal); J45.909 Unspecified asthma, uncomplicated; Z91.013 Allergy to seafood; Z88.1 Allergy status to other antibiotic agents
CPT/HCPCS: 99283; 71046; J7512; J3490